=== PATIENT | female | born 1995 | race Caucasian/White ===

== ENCOUNTER 2017-01-16 17:45 | Emergency (ER) | payer BC ==
[2017-01-16 17:56] VITALS: BP 146/79
[2017-01-16] MEDS ORDERED: Ondansetron ODT TAB* 4 MG PO ONE (18:32)
[2017-01-16] MEDS ORDERED: NS 0.9% 1000 ML* 1,000 ML IV ONE (18:58)
[2017-01-16] MEDS ORDERED: Metoclopramide IV* 5 MG/ML 2 ML VIAL IV ONE (18:59)
[2017-01-16] MEDS ORDERED: SUMAtriptan SQ* 6 MG/0.5 ML VIAL SUBCUT ONE ×2 (19:43→21:11)
[2017-01-16] MEDS ORDERED: Ketorolac INJ* 30 MG/ML 1 ML VIAL IV PUSH ONE (20:11)
--- NOTE | 2017-01-16 22:54 | UC ---
Joshua Mooney Janilya, scribed for Ana Tse MD on 01/16/17 at 1807 . Eye Complaint HPI - HPI Summary HPI Summary: A 22 y/o female came in to [facility] presenting w/ a gradual onset of constant bilateral blurred vision that started today at 1500 while she was taking a test. By 1630, her condition has gotten much worse. Pt reports she could not read her test by the time she was done. At home, she could not read anything on her phone. In addition, pt reports nausea, but it is sometimes associated with her ADHD medication Focalin. She reports mild diarrhea just yesterday morning. Pt denies HENLEY, dizziness, vomiting, numbness, tingling. Pt had Gatorade and water , ate a Albert bar, and had a cold washcloth on head. Pt traveled this past weekend to [place] Saturday night. She thought she was dehydrated. So she drank water and slept after her travels. Now at the [facility], pt still has blurry vision. She does see colors and makes out shapes on her phone, but the words are not clear or distinct to be able to read them. Her LNMP was on Dec 24 or . Pt is on control. Pt is on Xanax. Last time she took it on Saturday. No PMHx migraines. FHx migraines - father. - History of Current Complaint Chief Complaint: UCEye Stated Complaint: BLURRED VISION Hx Obtained From: Patient Hx Last Menstrual Period: 7 wks ago ?: No Onset/Duration: Gradual Onset, Lasting Hours, Still Present Timing: Constant Severity Initially: Moderate Severity Currently: Moderate Pain Intensity: 0 Pain Scale Used: 0-10 Numeric Location of Injury: Other - no injury Character: Dull - blurry vision Aggravating Factor(s): Nothing Alleviating Factor(s): Nothing Associated Signs And Symptoms: Positive: Vision Impairment Bilateral - blurred vision - Risk Factors Penetrating Injury Risk Factor: Negative Globe Rupture Risk Factors: Negative Acute Glaucoma Risk Factors: Negative Optic Artery Occlusion Risk Factors: Negative - Allergies/Home Medications Allergies/Adverse Reactions: Allergies Allergy/AdvReac Type Severity Reaction Status Date / Time No Known Allergies Allergy Verified 01/16/17 17:56 Home Medications: Home Medications Dexmethylphenidate XR (NF) [Focalin XR (NF)] 01/16/17 [History] Levonorgestrel & Eth Estradiol [Orsythia 0.1-20 mg-Mcg] 01/16/17 [History Confirmed 01/16/17] PMH/Surg Hx/FS Hx/Imm Hx Previously Healthy: Yes - Surgical History Surgical History: Yes Surgery Procedure, Year, and Place: Nasal - Family History Known Family History: Positive: Other - migraines - father Family History: R & n/C - Social History Occupation: Student Alcohol Use: Occasionally Substance Use Type: Prescribed Smoking Status (MU): Current Some Day Smoker Review of Systems Constitutional: Negative Skin: Negative Eyes: Blurred Vision ENT: Negative Respiratory: Negative Cardiovascular: Negative Gastrointestinal: Negative - pt denies vomiting, Other - nausea Genitourinary: Negative Motor: Negative Neurovascular: Negative Musculoskeletal: Negative Neurological: Negative - pt denies dizziness, HENLEY, numbness, tingling Psychological: Negative All Other Systems Reviewed And Are Negative: Yes Physical Exam Triage Information Reviewed: Yes Appearance: Well-Appearing, Well-Nourished, Pain Distress Vital Signs: Initial Vital Signs Temp 98.9 F 01/16/17 17:51 Pulse 141 01/16/17 17:51 Resp 18 01/16/17 17:51 BP 146/79 01/16/17 17:51 Pulse Ox 99 01/16/17 17:51 Vital Signs Reviewed: Yes Eyes: Positive: Conjunctiva Clear, Other: - PERRL, EOMI. Fundi disk sharp and flat. No hemorrhage. Normal cup to disc ratio. No papilledema. ENT: Positive: Normal ENT inspection, Hearing grossly normal, Pharynx normal, TMs normal. Negative: Muffled/hoarse voice Neck: Positive: Supple, Nontender, No Lymphadenopathy Respiratory: Positive: Lungs clear, Normal breath sounds, No respiratory distress Cardiovascular: Positive: RRR, No Murmur, Pulses Normal, Brisk Capillary Refill Abdomen Description: Positive: Nontender, No Organomegaly, Soft. Negative: Distended, Guarding, McBurney's Point Tenderness, Peritoneal Signs Bowel Sounds: Positive: Present Musculoskeletal: Positive: Strength Intact, ROM Intact Neurological: Positive: Alert, Muscle Tone Normal, Other: - A&Ox3, CN II-XII intact; motor 5/5, sensation intact, gait normal; patellar reflexes 2+ VA 20/20 bilat even with blurred vision persisting Psychological Exam: Normal Skin Exam: Normal Re-Evaluation - Re-Evaluation First Eval Re-Evaluation Time: 19:23 Change: Unchanged Comment: Pt's condition is unchanged. Visual acuity noted 20/20. Second Eval Re-Evaluation Time: 19:42 Change: Unchanged Comment: Blurry vision is unchanged. However, pt is not as nauseous anymore. Third Eval Re-Evaluation Time: 19:56 Change: Unchanged Comment: Pt's vision is still blurry. Nausea is improved. Fourth Eval Re-Evaluation Time: 20:09 Change: Improved Comment: Blurred vision has not been completely resolved, however, it is improved. Putting her on Ketorolac IV now. Fifth Eval Re-Evaluation Time: 20:38 Change: Improved Comment: Vision is much more improved, almost completely back to normal. Eye Complaint Course/Dx - Differential Dx/Diagnosis Differential Diagnosis/HQI/PQRI: Conjunctivitis, Corneal Abrasion, Other - Migraine; CVA; pseudotumor cerebri; corneal abrasion; MS Provider Diagnoses: Migraine - Physician Notification/Consults Discussed Patient Care With: Dr. Turner (ophthalmology) at 1923: discussed pt' s chief complaint, current condition, and possibility of migraine. Agrees with current management and will see pt in am if desired. Discharge - Discharge Plan Condition: Stable Disposition: HOME Prescriptions: SUMAtriptan TAB* [Imitrex TAB*] 25 mg PO SEE INSTRUCTIONS #8 tab Patient Education Materials: Migraine Headache (ED) Forms: *School Release Referrals: Stalin Turner MD [Medical Doctor] - 1 Day (the manager hydraulic if any visual symptoms and you want to be seen by the specialist ) Ananth Glover MD [Medical Doctor] - 7 Days (neurologist ) No Primary Care Phys,NOPCP [Primary Care Provider] - Additional Instructions: Dr. Tse gave you oral ondansetron (Zofran) 4mg ODT at 18:37pm. Then she started the IV normal saline(NS) and gave you IV metoclopramide (Reglan ) 10mg at 18:59pm. She gave you sumatriptan (Imitrex) 6mg subcutaneously at 19:48pm. She then gave you ketorolac (Toradol) 15mg IV at 20:23. She gave a final dose of sumatriptan (Imitrex) 6mg subcutaneously at 21:15pm. You have received a total of 1 liter of NS IV . Dr. Tse consulted with Dr. Turner the manager hydraulic central station operator and he concurred with our treatment plan. He will see you in the morning if you have any persistent symptoms, or concerns about your vision. You have stated you will try to go to your father's doctor in about [address] Tse has referred you to the neurologist central station operator in [place], Dr. Glover, if you are unable to see your father's neurologist. She prescribed oral imitrex that you may try if your symptoms recur. Take it exactly as directed. RETURN TO URGENT CARE FOR ANY NEW OR WORSENING SYMPTOMS. The documentation as recorded by the Joshua degroot Janilya accurately reflects the service I personally performed and the decisions made by me, Ana Tse MD.
== END 2017-01-16 21:30 | disposition home or self-care (01) ==
LOC: UCEAST 17:45
DX: G43.909 Migraine, unspecified, not intractable, without status migrainosus (principal); Z32.02 Encounter for pregnancy test, result negative; Z72.0 Tobacco use
CPT/HCPCS: 12002; 81002; 81025; 96360; 96361; 96372; 96374; 96375; 96376; 99211; 99213; A9270-GY; G0463; J1885; J2765; J3030